=== PATIENT | male | born 1940 | race Caucasian/White ===

== ENCOUNTER 2021-04-10 02:36 | Day surgery (SDC) | payer MEDICARE, BC, SELFPAY ==
[2021-03-31 14:10] VITALS: BMI 29.9
[2021-04-10 09:12] VITALS: BP 160/88; PULSE 78; RESP 18; TEMP 36.1; O2SAT 98; BMI 29.7
--- NOTE | 2021-04-10 09:30 | P.CONGI_ITS ---
Assessment and Plan Assessment and plan (1) Diarrhea: Code(s): R19.7 - Diarrhea, unspecified Status: Acute Assessment and Plan: Patient reports diarrhea and some poor control of his bowel habits. Likely related to metformin. He has had 2 prior rectal surgeries that could contribute. He has a poor diet which also may contribute. Plan is for high- fiber diet with fiber supplements. Colonoscopy is requested because of prior history of colon polyps, weight loss ,and change in bowel habits. (2) Weight loss: Code(s): R63.4 - Abnormal weight loss Status: Acute Assessment and Plan: Patient has weight loss for uncertain reasons. May be related to metformin. Patient remains active. Colonoscopy has been requested will be performed. GI Consult Note Consult date/time: 04/10/21 09:30 HPI: Preston Sandra is a 80 year old male Presents for colonoscopy. Patient has a long history of diabetes on metformin. Over this last year he has lost perhaps 20lb. He states he remains rather active. Patient underwent a colonoscopy 4 years ago that revealed a lipoma. Patient reports 2 prior hemorrhoid surgeries. And has frequent fecal urgency. He denies any bleeding. He states he will have loose stools in the morning if he takes the metformin. He denies any abdominal pain. He states his diet is very poor. He does not eat a very balanced a regular diet. Family history is noncontributory. Patient is referred because of weight loss and loose stools. Colonoscopy has been recommended. Review of Systems Review of Systems: All systems reviewed & are unremarkable except as noted in HPI and below PMFSH Social History Social History Smoking status: Never smoker Alcohol intake: former Substance use: never Living arrangements: with family Additional living arrangements comments: lives with Gender identity (if verbalized by the patient): Male Spiritual care concerns: No Meds Home Medications and Allergies Home Medications Medication Instructions Recorded Confirmed Type albuterol sulfate [ProAir HFA] 90 mcg INHALATION PRN 03/31/21 04/10/21 History aspirin 81 mg PO DAILY 03/31/21 04/10/21 History atorvastatin 20 mg PO QAM 03/31/21 04/10/21 History budesonide-formoterol [Symbicort] 160 inh INHALATION PRN 03/31/21 04/10/21 History lisinopril 2.5 mg PO QAM 03/31/21 04/10/21 History metformin 1,000 mg PO BID 03/31/21 04/10/21 History Allergies Allergy/AdvReac Type Severity Reaction Status Date / Time No Known Allergies Allergy Verified 04/10/21 09:10 Vital Signs Vital Signs - 24 hr 04/10/21 09:12 Temperature 97 F L Pulse Rate 78 Respiratory Rate 18 Blood Pressure 160/88 H Pulse Oximetry 98 Exam Narrative: Physical exam reveals patient be alert. Vital signs stable. HEENT exam is unremarkable. Patient anicteric. Lungs are clear to auscultation and percussion. Heart is without murmur or extra sounds. Abdominal exam bowel sounds are present soft nontender with no hepatosplenomegaly. Digital external rectal exam normal.
[2021-04-10 09:39] LABS: Glucose Point of Care 129 mg/dl (65-105)
[2021-04-10] MEDS: LACTATED RINGERS 1,000 ML 150 ML IV CONT (09:39)
--- NOTE | 2021-04-10 09:40 | WPDANESEPPF ---
Anes - Initial Pre Proc Eval Procedure: Operation Date: 04/10/21 09:45 Proposed Procedures p Colonoscopy - Mikey Rodríguez MD Date/Time: 04/10/21 09:40 Surgeon: Mikey Rodríguez MD Pre Op Diagnosis: diarrhea Patient Data Age: 80 Gender: M Height: 1.75 m Weight: 91.4 kg Last Vital Signs Temp 36.1 C L 04/10/21 09:12 Pulse 78 04/10/21 09:12 Resp 18 04/10/21 09:12 BP 160/88 H 04/10/21 09:12 Pulse Ox 98 04/10/21 09:12 Allergies Allergy/AdvReac Type Severity Reaction Status Date / Time No Known Allergies Allergy Verified 04/10/21 09:10 Home Medications Medication Instructions Recorded Confirmed Type albuterol sulfate [ProAir HFA] 90 mcg INHALATION PRN 03/31/21 04/10/21 History aspirin 81 mg PO DAILY 03/31/21 04/10/21 History atorvastatin 20 mg PO QAM 03/31/21 04/10/21 History budesonide-formoterol [Symbicort] 160 inh INHALATION PRN 03/31/21 04/10/21 History lisinopril 2.5 mg PO QAM 03/31/21 04/10/21 History metformin 1,000 mg PO BID 03/31/21 04/10/21 History Laboratory Tests 04/10/21 09:37 POC Capillary Glucose 129 mg/dl H mg/dl (65-105) Patient hx anesthesia problems: none Family hx anesthesia problems: none [facility] Past Medical History Medical History Asthma Diabetes Social History Social History Smoking status: Never smoker Alcohol intake: former Substance use: never Living arrangements: with family Additional living arrangements comments: lives with Gender identity (if verbalized by the patient): Male Spiritual care concerns: No Anes - Eval Final PreProcedure Day of Procedure 04/10/21 09:40 Patient weight: overweight Heart: regular rate and rhythm Lungs: decreased breath sounds Airway: Mallampati scale class II Neurological: alert and oriented Last oral intake: >/= 8 hours ASA classification: III Emergent: no Anesthetic plan: proceed Anesthesia type and monitoring: general GIVS and standard monitoring Informed Consent: The patient's anesthetic plan and its attendant risks and benefits were discussed with the patient/family/POA. Questions were solicited and answers provided to the satisfaction of the patient/family/POA.
[2021-04-10] MEDS: SIMETHICONE ORAL SUSPENSION 20 MG/0.3 ML 30 ML BOTTLE 0.6 ML IRRIGATION (10:14)
[2021-04-10 10:27] VITALS: BP 131/88; PULSE 73; RESP 20; O2SAT 95
[2021-04-10 10:37] VITALS: BP 141/85; PULSE 72; RESP 20; O2SAT 96
[2021-04-10 10:47] VITALS: BP 142/84; PULSE 71; RESP 18; O2SAT 97
== END 2021-04-10 11:00 | disposition home or self-care (01) ==
PROVIDERS: PCP Internal Medicine; Visit Provider Internal Medicine Gastroenterology
PROC: 0DJD8ZZ Inspection of Lower Intestinal Tract, Via Natural or Artificial Opening Endoscopic (ICD-10-PCS; CPT 45378; principal; 2021-04-10 09:45)
DX: R19.7 Diarrhea, unspecified (principal); R63.4 Abnormal weight loss; K64.8 Other hemorrhoids
CPT/HCPCS: 45380; 82948; 88305; J2704; J7120